=== PATIENT | male | born 1960 | race Caucasian/White ===

== ENCOUNTER 2017-08-25 18:45 | Emergency (ER) | payer OTHER ==
[2017-08-25 18:52] VITALS: TEMP 98.4
--- NOTE | 2017-08-25 19:06 | CPEKG ---
Heart Rate: 66 RR Interval: 909 P-R Interval: 152 QRSD Interval: 90 QT Interval: 372 QTC Interval: 390 P [place]: 72 QRS [place]: -12 T Wave [place]: 19 EKG Severity - NORMAL ECG - EKG Impression: SINUS RHYTHM Electronically Signed By: Triston Katz 25-Aug-2017 19:44:30
[2017-08-25 19:28] VITALS: RESP 18
[2017-08-25 19:42] LABS: % IMMATURE GRANULYOCYTES 0.3 % (0.0-1.1); ABSOLUTE IMMATURE GRANULOCYTES 0.02 10^3/uL (0.00-0.10); ADD DIFF? NO; ADD MORPH? NO; ADD SCAN? NO; ATYPICAL LYMPHOCYTE FLAG 0 (0-99); FRAGMENT RBC FLAG 0 (0-99); HEMATOCRIT 45.7 % (40.0-51.0); LEFT SHIFT FLG 0 (0-99); LIPEMIA HEMOLYSIS FLAG 90 (0-99); MEAN CELL HEMOGLOBIN 32.7 pg (27.9-34.1); MEAN CELL VOLUME 93.5 fL (81.5-99.8); MEAN PLATELET VOLUME 9.8 fL (8.7-11.7); PLATELET CLUMPS FLAG 10 (0-99); PLATELET COUNT 201 10^3/uL (150-400); RED BLOOD CELL COUNT 4.89 10^6/uL (4.40-6.38)
--- NOTE | 2017-08-25 19:44 | EDPHY ---
H & P Time Seen by Provider: 08/25/17 19:18 HPI/ROS: CHIEF COMPLAINT: Epigastric pain and arm pain HISTORY OF PRESENT ILLNESS: This 57-year-old man started having symptoms around Thanksgiving in his epigastrium. He is currently on omeprazole for the last 10 days. Not exertional, doesn't radiate. No vomiting or diarrhea. No change reliably with oral intake. Also in the last 10 days he developed intermittent pain in each arm including his right and left arm extending down to his elbow and sometimes to the wrist. This is associated with right-sided neck pain last 10 days but today is neck does not hurt. Patient presents today with bilateral arm pain just today radiating down both arms to the elbows. He describes is an achiness or numbness does not change by moving his arms. No weakness or numbness in the hands. No incontinence or lower back pain. No weakness or numbness in the legs. This is associated with continued epigastric discomfort which does not radiate to his back and is not associated with trouble breathing or weakness or numbness in his legs. Symptoms mild to moderate. REVIEW OF SYSTEMS: Eye: no change in vision ENT: no sore throat Cardiac: No anterior chest pain, no syncope Pulmonary: no cough or SOB Abdomen: no vomiting, diarrhea Musculoskeletal: HPI Skin: no rash Neuro: no headache, no dizziness or vertigo Constitutional: no fever : no urinary symptoms A comprehensive 10 point review of systems is otherwise negative aside from elements mentioned in the history of present illness. PAST MEDICAL HISTORY: Includes hand surgery, deviated septum. Negative for diabetes, hypertension, hypercholesterolemia Family history: Negative for coronary disease or venous thromboembolism. Social history: Nonsmoker, no alcohol or drugs General Appearance: Alert and conversant, cooperative. Eyes: No scleral icterus. ENT, Mouth: Normal mucous membranes. Respiratory: Normal respiratory effort, breath sounds equal, lungs are clear to auscultation. Cardiovascular: Regular rate and rhythm. No murmur auscultated. Gastrointestinal: Abdomen is soft and non tender. Negative for Perez sign. Neurological: Alert and oriented x3. Normally conversant. Face symmetric, normal movement and sensation in all extremities. Normal strength in deltoids, triceps, biceps, wrist extensor, and intrinsics. Normal sensation to light touch in radial median and ulnar nerve distributions in both arms. 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 1+ patellar bilateral reflexes, no clonus and arms or legs. 1+ triceps reflexes bilaterally and symmetric. No pronator drift. Skin: Warm and dry, no rashes. Musculoskeletal: No peripheral edema and no joint swelling. Normal range of motion of the neck, no meningeal signs. No focal tenderness or swelling on either upper extremity. Psychiatric: Not agitated. Emergency Department course/MDM: Unclear the patient's epigastric and arm symptoms are related or separate issues. Plan for labs to include troponin and LFTs and lipase. Consideration for CT angiography of the chest to evaluate for dissection in a patient with thoracic pain and neurologic peripheral symptoms. Possibility of herniated disc in his neck is considered but the patient has normal strength and sensation. He does not have shooting pains in his arms with movement of his head or neck or back. No incontinence. No lower extremity symptoms. 2111: CT negative for dissection or other abnormality. Epigastric pain more likely GERD than other. HEART score low risk for [place]. 2119: Results discussed in detail with the patient. MRI spine discussed but patient would prefer to wait until Monday with his primary care follow-up. I think this is reasonable as he does not have objective evidence on my exam of motor or sensory deficit. He appears comfortable. Does not want pain medication other than oral ibuprofen. Ambulatory with normal gait out of ED. Not limping or ataxic. Smoking Status: Never smoked Constitutional: Initial Vital Signs Temperature (C) 36.9 C 08/25/17 18:49 Heart Rate 69 08/25/17 18:49 Respiratory Rate 16 08/25/17 18:49 Blood Pressure 153/99 H 08/25/17 18:49 O2 Sat (%) 99 08/25/17 18:49 O2 Delivery Mode Room Air Allergies/Adverse Reactions: No Known Allergies Allergy (Unverified 06/27/09 09:47) Home Medications: Medication Instructions Recorded None 06/27/09 Omeprazole 08/25/17 Medical Decision Making - Diagnostics EKG Interpretation: 12-lead EKG interpreted by me; official reading is in trace master. My interpretation is sinus rhythm rate 66 no ischemic changes. Imaging Results: Imaging Impressions Chest/Thorax CTA 08/25/17 19:58 Impression: 1. No pulmonary embolism to the segmental level. 2. Left upper lobe part solid nodule measuring 1 cm. Per Fleischner Society 2017 guidelines, recommend follow-up CT chest in 3-6 months. 3. Wall thickening of the central airways may reflect bronchitis. Dr. Cote discussed these findings by telephone with AMBER RICE on 2016 21:12. Differential Diagnosis: Differential considered for arm pain and epigastric pain including but not limited to central disc herniation, aortic dissection, acute coronary syndrome, peripheral neuropathy, pancreatitis, ischemic stroke, gallbladder disease, myelitis, cop infection, other vascular. - Data Points Laboratory Results: Laboratory Results 08/25/17 19:14 08/25/17 19:14 08/25/17 08/25/17 19:14 19:14 WBC 5.78 10^3/uL 10^3/uL (3.80-9.50) RBC 4.89 10^6/uL 10^6/uL (4.40-6.38) Hgb 16.0 g/dL g/dL (13.7-17.5) Hct 45.7 % % (40.0-51.0) MCV 93.5 fL fL (81.5-99.8) MCH 32.7 pg pg (27.9-34.1) MCHC 35.0 g/dL g/dL (32.4-36.7) RDW 13.0 % % (11.5-15.2) Plt Count 201 10^3/uL 10^3/uL (150-400) MPV 9.8 fL fL (8.7-11.7) Neut % (Auto) 59.2 % % (39.3-74.2) Lymph % (Auto) 25.1 % % (15.0-45.0) [place] % (Auto) 11.4 % % (4.5-13.0) Eos % (Auto) 3.5 % % (0.6-7.6) Baso % (Auto) 0.5 % % (0.3-1.7) Nucleat RBC Rel Count 0.0 % % (0.0-0.2) Absolute Neuts (auto) 3.42 10^3/uL 10^3/uL (1.70-6.50) Absolute Lymphs (auto) 1.45 10^3/uL 10^3/uL (1.00-3.00) Absolute Monos (auto) 0.66 10^3/uL 10^3/uL (0.30-0.80) Absolute Eos (auto) 0.20 10^3/uL 10^3/uL (0.03-0.40) Absolute Basos (auto) 0.03 10^3/uL 10^3/uL (0.02-0.10) Absolute Nucleated RBC 0.00 10^3/uL 10^3/uL (0-0.01) Immature Gran % 0.3 % % (0.0-1.1) Immature Gran # 0.02 10^3/uL 10^3/uL (0.00-0.10) Sodium 143 mEq/L mEq/L (134-144) Potassium 4.1 mEq/L mEq/L (3.5-5.2) Chloride 104 mEq/L mEq/L (97-110) Carbon Dioxide 23 mEq/l mEq/l (22-31) Anion Gap 16 mEq/L mEq/L (8-16) BUN 18 mg/dL mg/dL (7-23) Creatinine 0.9 mg/dL mg/dL (0.7-1.3) Estimated GFR > 60 Glucose 100 mg/dL mg/dL (70-100) Calcium 9.8 mg/dL mg/dL (8.5-10.4) Total Bilirubin 0.6 mg/dL mg/dL (0.1-1.4) Conjugated Bilirubin 0.3 mg/dL mg/dL (0.0-0.5) Unconjugated Bilirubin 0.3 mg/dL mg/dL (0.0-1.1) AST 31 IU/L IU/L (17-59) ALT 37 IU/L IU/L (21-72) Alkaline Phosphatase 88 IU/L IU/L (38-126) Troponin I < 0.012 ng/mL ng/mL (0.000-0.034) Total Protein 7.2 g/dL g/dL (6.3-8.2) Albumin 4.5 g/dL g/dL (3.5-5.0) Lipase 126 IU/L IU/L (23-300) Medications Given: Discontinued Medications Ibuprofen (Motrin) 600 mg PO EDNOW ONE Stop: 08/25/17 21:27 Last Admin: 08/25/17 21:48 Dose: 600 mg Departure - Departure Disposition: Home, Routine, Self-Care Clinical Impression: Epigastric pain, Bilateral arm pain Condition: Good Instructions: Abdominal Pain (ED) Additional Instructions: Oral ibuprofen 600 mg every 6-8 hours as needed for the next 48 hr for pain. Please return immediately if you get weakness or numbness in your arms or legs, incontinence, or recurrence of severe neck or back pain, or any new neurologic symptoms. Referrals: Gallo Lipscomb MD [Medical Doctor] - 08/28/17 (Follow-up Monday in the office as scheduled.)
[2017-08-25 19:45] LABS: ANION GAP 16 mEq/L (8-16); CALCIUM 9.8 mg/dL (8.5-10.4); CARBON DIOXIDE 23 mEq/l (22-31); CHLORIDE 104 mEq/L (97-110); CREATININE 0.9 mg/dL (0.7-1.3); GLOMERULAR FILTRATION RATE > 60; GLUCOSE 100 mg/dL (70-100); POTASSIUM 4.1 mEq/L (3.5-5.2); SODIUM 143 mEq/L (134-144)
[2017-08-25 19:57] LABS: TROPONIN I < 0.012 ng/mL (0.000-0.034)
[2017-08-25] MEDS ORDERED: IOPAMIDOL (ISOVUE 370) 100 ML BTL IV ONE (20:12)
[2017-08-25 20:18] LABS: BILIRUBIN-UNCONJUGATED 0.3 mg/dL (0.0-1.1)
[2017-08-25 20:28] LABS: ALANINE AMINOTRANSFERASE 37 IU/L (21-72); ALBUMIN 4.5 g/dL (3.5-5.0); ALKALINE PHOSPHATASE 88 IU/L (38-126); ASPARTATE AMINOTRANSFERASE 31 IU/L (17-59); BILIRUBIN,TOTAL 0.6 mg/dL (0.1-1.4); BILIRUBIN-CONJUGATED 0.3 mg/dL (0.0-0.5); TOTAL PROTEIN 7.2 g/dL (6.3-8.2)
[2017-08-25 21:21] VITALS: BP 129/86; PULSE 67; O2SAT 98
[2017-08-25] MEDS ORDERED: IBUPROFEN 600 MG TAB PO ONE (21:26)
== END 2017-08-25 21:53 | disposition home or self-care (01) ==
DX: R10.13 Epigastric pain (principal); M79.602 Pain in left arm; M79.601 Pain in right arm
CPT/HCPCS: Q9967

== ENCOUNTER → 2017-11-20 | Outpatient (CLI) | payer OTHER | LOC: FIMAGING 07:47 | PROVIDERS: ATTEND Internal Medicine | DX: R91.1 Solitary pulmonary nodule (principal) ==